=== PATIENT | female | born 1990 | race Native Hawaiian/Other Pacific Islander ===

== ENCOUNTER 2022-07-10 02:37 | Emergency (ER) | payer OTHER ==
[~2022-07-10] VITALS: Ht 165.1 cm; Wt 115.7 kg
[2022-07-10 02:45] VITALS: TEMP 98.6
[2022-07-10 03:50] LABS: PLATELET COUNT 315 K/uL (152-353)
[2022-07-10 03:51] LABS: POTASSIUM 3.8 mmol/L (3.6-5.2)
[2022-07-10 04:53] VITALS: BP 141/79
== END 2022-07-10 04:54 | disposition home or self-care (01) ==
LOC: ED 02:37
PROVIDERS: Family Medicine
DX: K59.09 Other constipation (principal); R11.2 Nausea with vomiting, unspecified; E86.0 Dehydration
CPT/HCPCS: 36415; 80053; 81002; 81025; 82150; 83690; 85027; 99283